=== PATIENT | female | born 1970 | race Caucasian/White ===

== ENCOUNTER → 2021-03-20 | Outpatient (CLI) | payer OTHER ==
--- NOTE | 2021-03-20 15:36 | RAD ---
MG BILAT SCREEN+DOMENICO 03/20/2021 9:20 AM INDICATION: Asymptomatic screening mammogram. COMPARISON: No priors available. TECHNIQUE: 3D tomosynthesis was performed in CC and MLO projections. 2D views were obtained from the 3D data. CAD was utilized as needed. FINDINGS: Breast density: Category C: The breats are heterogeneously dense, which may obscure small masses. Right breast: There is a mass in the inferior right breast at anterior depth, approximately 1.7 cm fr om the nipple. Further evaluation with targeted ultrasound is recommended. Left breast: There is a mass in the slightly medial slightly upper left breast at anterior depth appr oximately 2 cm from the nipple. Further evaluation with targeted ultrasound is recommended. IMPRESSION: Incomplete bilateral mammogram. Additional imaging is recommended as detailed above. BI-RADS category: 0; Incomplete Recommendations: Recommend additional imaging for which the patient will need to be called back. Electronically signed by: Asiya Schaefer MD (03/20/2021 3:34 PM) [id number]
== END ==
LOC: MAMMO 09:13
PROVIDERS: ATTEND Physician Assistant Medical
DX: Z12.31 Encounter for screening mammogram for malignant neoplasm of breast (principal)
CPT/HCPCS: 77063; 77067

== ENCOUNTER → 2021-03-27 | Outpatient (CLI) | payer OTHER ==
--- NOTE | 2021-03-27 15:28 | RAD ---
EXAMINATION: US BREAST BILAT CLINICAL HISTORY: Follow-up bilateral breast masses TECHNIQUE: Sonographic images obtained through the bilateral breasts with color Doppler evaluation as indicated. COMPARISON: Bilateral mammogram 03/20/2021 FINDINGS: RIGHT: At 5:00 position 2 cm from the nipple, there is a 4 x 4 x 3 mm circumscribed hypoechoic mass with no posterior shadowing or internal vascularity which likely correlates to the mammographic finding, poss ibly a fibroadenoma. At 9:00 position 2 cm from the nipple, there is a 7 x 6 x 3 mm hypoechoic mass w ith questionable mild posterior acoustic enhancement, possibly a complicated cyst. LEFT: At 10:00 position 2 cm from the nipple, there is a cluster of cysts measuring 7 x 6 x 4 mm which like ly correlates to the mammographic finding. IMPRESSION: Probably benign bilateral breast masses as described, recommend follow-up bilateral diagnostic mammog nu and bilateral breast ultrasound in 6 months. BI-RADS ASSESSMENT: Category 3: Probably Benign RECOMMENDATION: Bilateral diagnostic mammogram and bilateral breast ultrasound in 6 months. PQRS compliance statement - Patient information was entered into a reminder system with a target due date for the next mammogram. "Our facility is accredited by the [employer] Mammography [employer]." Electronically signed by: Gregory Otero DO (03/27/2021 3:25 PM) [email or web address]
== END ==
LOC: US 14:18
PROVIDERS: ATTEND Physician Assistant Medical
DX: N60.02 Solitary cyst of left breast (principal); R92.2 Inconclusive mammogram
CPT/HCPCS: 76641-50

== ENCOUNTER → 2021-04-26 | Outpatient (CLI) | payer OTHER ==
--- NOTE | 2021-04-26 10:21 | RAD ---
Right ankle 3 views: Reason for examination: Posterior right ankle pain. No acute fracture or dislocation is seen. 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 The bone density is normal. No abnormal periosteal reaction is seen. Joint spaces are maintained. There is soft tissue swelling over the lat eral malleolus. IMPRESSION: No acute fracture or dislocation. Soft tissue swelling over the lateral malleolus. Electronically signed by: Mary Benson MD (04/26/2021 10:19 AM) [id number]
== END ==
LOC: RAD 09:09
PROVIDERS: ATTEND Physician Assistant Medical
DX: M25.571 Pain in right ankle and joints of right foot (principal); M79.89 Other specified soft tissue disorders
CPT/HCPCS: 73610